=== PATIENT | female | born 1990 | race Caucasian/White ===

== ENCOUNTER → 2020-10-18 | Outpatient (CLI) | payer BC ==
[~2020-10-18] MED LIST: IBU600 MG PO; IBU800 M1 PO; PERCOCET 325 MG1 TA2 PO; PRENATAL; PROTONIX20 MG PO
== END | disposition still patient (30) ==
LOC: ZCOL.LAB 01:44
DX: Z20.822 Contact with and (suspected) exposure to COVID-19 (principal)

== ENCOUNTER 2020-10-22 06:58 | Inpatient (IN) | payer BC ==
[~2020-10-22] VITALS: Ht 162.6 cm; Wt 66.1 kg
[2020-10-22] VITALS (54 sets, daily range): BP systolic 88–148; BP diastolic 46–81; PULSE 73–117; TEMP 97.9–98.6
[~2020-10-22 06:58] MED LIST changes: -IBU800 M1 PO
--- NOTE | 2020-10-22 07:05 | NUR ---
Patient ambulatory to LR6 with spouse, changed into gown, FHR/TOCO monitors placed and explained. Patient here for induction at 37.3 weeks for IUGR. Patient denies any regular contractions/leaking of fluid/vaginal bleeding/decreased movement. Plan of care discussed and questions answered. 0720: IV started in left upper arm, blood obtained and to lab, LR infusing. Assessment completed/consents signed/ packet given. 0750: Pitocin induction discussed and patient agrees with plan. Pitocin started at 2 mU/hr per protocol. 0855: Dr. Aquino at bedside and assessing patient and FHR strip. Plan of care discussed. 0900: SVE-1/50/-2 and AROM at this time with clear fluid noted.
[2020-10-22 07:55] LABS: BASO % 0.3 % (0.0-2.0); EOS # 0.2 (0.0-0.7); EOS % 2.1 % (0-4.0); GRAN # 7.2 (1.4-6.5); GRAN % 69.4 % (42.2-75.2); HEMOGLOBIN 11.5 g/dl (12.5-16.0); LYMPH # 2.2 (1.2-3.4); LYMPH % 20.9 % (20.0-51.0); MEAN CELL VOLUME 97 fl (80.0-100.0); MEAN CORPUSCULAR HEMOGLOBIN 33 pg (27.0-31.0); MEAN CORPUSCULAR HGB CONC 34 g/dl (33.0-37.0); MEAN PLATELET VOLUME 10.8 fl (7.4-10.4); MONO # 0.7 (0.1-0.6); MONO % 6.4 % (1.7-9.3); PLATELET COUNT 312 K/mm3 (130-400); RED BLOOD COUNT 3.45 M/mm3 (4.10-5.30); REDCELL DISTRIBUTION WIDTH-CV 12.8 % (11.5-14.5)
[2020-10-22 07:57] LABS: HEMATOCRIT 33.5 % (37.0-47.0)
[2020-10-22] MEDS ORDERED: IBU800 M1 PO (09:07)
--- NOTE | 2020-10-22 11:30 | NUR ---
SVE- 1-2/60/-[address] Aquino to increase pitocin to 30mU. Patient standing at bedside and difficulty tracing FHR. This RN adjusting monitor. 1215: Patient on birthing ball and this RN adjusting FHR monitor. 1240: Patient on birhting ball/standing and FHR intermittently tracing maternal heart rate. Monitor adjusted. 1245: Dr. Aquino at bedside and SVE per physician- 3/80/-2 and plan of care updated. 1335: Patient requesting epidural and T.Sydney CURATOR notified. 1410: Patient sitting up for placement of epidural and difficulty tracing FHR due to maternal position. T. Sydney CNRA at bedside at this time. 1420: Test dose given and patient tolertes well. 1425: Patient repositioned and safety precautions/plan of care discussed. 1450: Patient compfortable with epidural and de la fuente catheter placed. SVE 3-4/80/-1. Patient right lateral with left leg resting in stirrup.
--- NOTE | 2020-10-22 18:30 | NUR ---
Report received from Nilam NICE. 1837: Pt called out stating she was light headed sitting up. Apple juice and snack given. Pt repositioned to right lateral with left leg in stirrups per pts request. Pt reports feeling better laying down. 1854: Pt called out stating she was feeling pressure. SVE C/+2. Plan of care explained to pt and . 1856: called for delivery. See physican notification. Educated pt to try and breath through contractions. Pt feeling a lot of pressure during contractions. 1905: at bedside for delivery. Pt prepped for delivery and assisted into footplates. 1908: Spontaneous vaginal delivery of viable male by . Pitocin turned off per protocol. to mothers chest where dried and stimulated by nursey RN. Care of assummed by Naveen NICE. 1914: Spontaneous delivery of intact placenta by . Pitocin resummed at 333mus/hr per protocol. Perineum intact. Fundal messager completed by . Pericare provided, pads changed and pt repositioned in bed. Ice pack applied. Plan of care and safety precautions explained to pt and who verbalize their understanding. Placenta sent to the lab per providers orders.
[2020-10-23 13:30] VITALS: BP 100/62; PULSE 98; TEMP 98.7
[2020-10-23 17:39] VITALS: BP 107/49; PULSE 84
[2020-10-23 20:00] VITALS: BP 109/59; PULSE 85; TEMP 97.7
[2020-10-24 08:00] VITALS: BP 109/59; PULSE 84; TEMP 97.9
--- NOTE | 2020-10-24 08:00 | NUR ---
Rests in bed, alert. Ibuprofen 600 mg given per request and as ordered.
--- NOTE | 2020-10-24 09:20 | NUR ---
Initial visit; Patient thanked Geospatial Engineer for offering congratulations and God's blessings for the of her son. Geospatial Engineer thanked Mom for choosing [facility].
[2020-10-24 17:30] VITALS: BP 111/55; PULSE 85; TEMP 98.2
--- NOTE | 2020-10-24 18:30 | NUR ---
Rests in bed, alert. Discharge instructions given for border status. Ibuprofen 600 mg and senokot given.
--- NOTE | 2020-10-24 18:45 | NUR ---
Dismissed to border status.
== END 2020-10-24 18:45 | disposition home or self-care (01) | DRG 807 ==
LOC: LDR 06:58 → OB 11:32 → LDR 21:19 → OB 21:42
PROVIDERS: ADMIT Student in an Organized Health Care Education/Training Program
PROC: 10E0XZZ Delivery of Products of Conception, External Approach (ICD-10-PCS; principal; 2020-10-22)
PROC: 10907ZC Drainage of Amniotic Fluid, Therapeutic from Products of Conception, Via Natural or Artificial Opening (ICD-10-PCS; 2020-10-22)
PROC: 3E033VJ Introduction of Other Hormone into Peripheral Vein, Percutaneous Approach (ICD-10-PCS; 2020-10-22)
DX: O36.5930 Maternal care for other known or suspected poor fetal growth, third trimester, not applicable or unspecified (principal); Z37.0 Single live birth; Z3A.37 37 weeks gestation of pregnancy; O99.344 Other mental disorders complicating childbirth; G93.89 Other specified disorders of brain
CPT/HCPCS: J2590; J7120